=== PATIENT | male | born 1975 | race Asian ===

== ENCOUNTER 2016-12-22 02:13 | Inpatient (IN) | payer OTHER ==
[~2016-12-22] VITALS: Ht 182.9 cm; Wt 101.0 kg
[2016-12-22] VITALS (1031 sets, daily range): BP systolic 90–103; BP diastolic 55–77; PULSE 90–130; TEMP 98.1–99.3; O2SAT 85–100
[2016-12-22 03:16] LABS: BASO # 0.1 (0.0-0.2); BASO % 0.4 % (0.0-2.0); EOS # 0.2 (0.0-0.7); EOS % 1.3 % (0-4.0); GRAN # 6.9 (1.4-6.5); GRAN % 59.4 % (42.2-75.2); HEMATOCRIT 40.1 % (42.0-52.0); HEMOGLOBIN 13.3 g/dl (13.5-18.0); LYMPH # 3.6 (1.2-3.4); LYMPH % 31.4 % (20.0-51.0); MEAN CELL VOLUME 85 fl (80.0-100.0); MEAN CORPUSCULAR HEMOGLOBIN 28 pg (27.0-31.0); MEAN CORPUSCULAR HGB CONC 33 g/dl (33.0-37.0); MEAN PLATELET VOLUME 10.2 fl (7.4-10.4); MONO # 0.8 (0.1-0.6); MONO % 7.2 % (1.7-9.3); PLATELET COUNT 267 K/mm3 (130-400); RED BLOOD COUNT 4.73 M/mm3 (4.20-5.60); REDCELL DISTRIBUTION WIDTH-CV 13.6 % (11.5-14.5); WHITE BLOOD COUNT 11.6 K/mm3 (4.8-10.8)
[2016-12-22 03:26] LABS: ADJUSTED CALCIUM 8.7 mg/dL (8.4-10.2); ALANINE AMINOTRANSFERASE 25 U/L (21-72); ALBUMIN 4.4 gm/dL (3.5-5.0); ALKALINE PHOSPHATASE 65 U/L (50-136); ANION GAP 14 mmol/L (7-16); BILIRUBIN,TOTAL 0.6 mg/dL (0.0-1.0); BLOOD UREA NITROGEN 20 mg/dL (9-20); CARBON DIOXIDE 24 mmol/L (22-30); CHLORIDE 101 mmol/L (98-107); CREATININE, serum 0.87 mg/dL (0.66-1.25); GLUCOSE 112 mg/dL (74-106); POTASSIUM 3.8 mmol/L (3.4-5.0); SODIUM 139 mmol/L (137-145); TOTAL PROTEIN 7.6 gm/dL (6.4-8.2)
[2016-12-22 03:39] LABS: TROPONIN-I < 0.012 ng/mL (0.000-0.034)
[2016-12-22] MEDS ORDERED: CLARITIN 1010 MG/TAB PO (07:59)
[2016-12-22] MEDS ORDERED: ASPIRIN 81M81 MG/TA2 PO (09:11)
[2016-12-23] VITALS (729 sets, daily range): BP systolic 95–110; BP diastolic 59–75; PULSE 75–91; TEMP 97–98.7; O2SAT 86–100
[2016-12-23 05:46] LABS: BASO % 0.3 % (0.0-2.0); EOS # 0.1 (0.0-0.7); EOS % 1.7 % (0-4.0); GRAN # 3.5 (1.4-6.5); GRAN % 49.4 % (42.2-75.2); HEMOGLOBIN 13.6 g/dl (13.5-18.0); LYMPH # 2.9 (1.2-3.4); LYMPH % 40.5 % (20.0-51.0); MEAN CELL VOLUME 85 fl (80.0-100.0); MEAN CORPUSCULAR HEMOGLOBIN 28 pg (27.0-31.0); MEAN CORPUSCULAR HGB CONC 33 g/dl (33.0-37.0); MEAN PLATELET VOLUME 10.3 fl (7.4-10.4); MONO # 0.6 (0.1-0.6); MONO % 7.8 % (1.7-9.3); PLATELET COUNT 277 K/mm3 (130-400); RED BLOOD COUNT 4.82 M/mm3 (4.20-5.60); REDCELL DISTRIBUTION WIDTH-CV 13.8 % (11.5-14.5); WHITE BLOOD COUNT 7.1 K/mm3 (4.8-10.8)
[2016-12-23 06:08] LABS: CALCIUM 8.9 mg/dL (8.4-10.2); CREATININE, serum 0.78 mg/dL (0.66-1.25); POTASSIUM 4.1 mmol/L (3.4-5.0)
[2016-12-23] MEDS ORDERED: XARELTO20 MG PO (16:49)
[2016-12-23] MEDS ORDERED: TAMBOCOR 1100 MG/TAB PO (16:50)
[2016-12-23] MEDS ORDERED: CARDIZEM CD 12120 MG PO (16:50)
[2016-12-23] MEDS ORDERED: LIPITOR20 MG PO (16:51)
== END 2016-12-23 18:30 | disposition home or self-care (01) | DRG 69 ==
LOC: COL.ER 02:13 → ICU 04:53
PROVIDERS: Family Medicine; Physician Assistant
DX: G45.9 Transient cerebral ischemic attack, unspecified (principal); I48.91 Unspecified atrial fibrillation; E78.5 Hyperlipidemia, unspecified; R20.0 Anesthesia of skin; Z87.891 Personal history of nicotine dependence; Z82.49 Family history of ischemic heart disease and other diseases of the circulatory system
CPT/HCPCS: 99223-AI; 99232-AI; 99239; J0282; J1650; J2060; J2405; J7030; J7050; J7060

== ENCOUNTER 2016-12-27 15:35 | Observation (INO) | payer OTHER ==
[~2016-12-27] VITALS: Ht 188 cm; Wt 76.3 kg
[~2016-12-27 15:35] MED LIST: ASPIRIN 81M81 MG/TA2 PO; CARDIZEM CD 12120 MG PO; CLARITIN 1010 MG/TAB PO; LIPITOR20 MG PO; TAMBOCOR 1100 MG/TAB PO; XARELTO20 MG PO
[2016-12-27 16:07] LABS: BASO % 0.4 % (0.0-2.0); EOS # 0.1 (0.0-0.7); EOS % 0.9 % (0-4.0); GRAN # 5.2 (1.4-6.5); GRAN % 52.8 % (42.2-75.2); HEMATOCRIT 40.6 % (42.0-52.0); HEMOGLOBIN 13.4 g/dl (13.5-18.0); LYMPH # 3.9 (1.2-3.4); LYMPH % 39.4 % (20.0-51.0); MEAN CELL VOLUME 85 fl (80.0-100.0); MEAN CORPUSCULAR HEMOGLOBIN 28 pg (27.0-31.0); MEAN CORPUSCULAR HGB CONC 33 g/dl (33.0-37.0); MEAN PLATELET VOLUME 10.1 fl (7.4-10.4); MONO # 0.6 (0.1-0.6); MONO % 6.1 % (1.7-9.3); PLATELET COUNT 299 K/mm3 (130-400); RED BLOOD COUNT 4.78 M/mm3 (4.20-5.60); REDCELL DISTRIBUTION WIDTH-CV 13.4 % (11.5-14.5); WHITE BLOOD COUNT 9.8 K/mm3 (4.8-10.8)
[2016-12-27] MEDS ORDERED: NATURAL MAGNES200 MG PO (16:27)
[2016-12-27 16:29] LABS: INR 1.2 (0.8-3.0); PROTHROMBIN TIME 13.9 SECONDS (9.7-12.8)
[2016-12-27 16:32] LABS: PARTIAL THROMBOPLASTIN TIME 43.5 SECONDS (26.0-37.0)
[2016-12-27 16:37] LABS: ALANINE AMINOTRANSFERASE 23 U/L (21-72); ALBUMIN 4.4 gm/dL (3.5-5.0); ALKALINE PHOSPHATASE 69 U/L (50-136); ANION GAP 14 mmol/L (7-16); BILIRUBIN,TOTAL 0.7 mg/dL (0.0-1.0); BLOOD UREA NITROGEN 13 mg/dL (9-20); CALCIUM 9.3 mg/dL (8.4-10.2); CARBON DIOXIDE 22 mmol/L (22-30); CHLORIDE 101 mmol/L (98-107); CREATININE, serum 0.83 mg/dL (0.66-1.25); GLUCOSE 100 mg/dL (74-106); LIPASE 74 U/L (23-300); SODIUM 136 mmol/L (137-145); TOTAL PROTEIN 7.8 gm/dL (6.4-8.2)
[2016-12-27 16:51] LABS: TROPONIN-I < 0.012 ng/mL (0.000-0.034)
[2016-12-27 18:28] VITALS: BP 114/68; PULSE 64; TEMP 98
[2016-12-27 18:29] VITALS: BP 114/68; PULSE 64; TEMP 98
[2016-12-27 19:24] LABS: MAGNESIUM 2.2 mg/dL (1.6-2.3)
[2016-12-27 19:50] LABS: B-TYPE NATRIURETIC PEPTIDE 26 pg/mL (0-125)
[2016-12-27 23:15] VITALS: BP 106/67; PULSE 60; TEMP 97.1
[2016-12-28 03:32] VITALS: BP 115/59; PULSE 65; TEMP 98.4
[2016-12-28 07:52] LABS: ANION GAP 12 mmol/L (7-16); BLOOD UREA NITROGEN 12 mg/dL (9-20); CARBON DIOXIDE 24 mmol/L (22-30); CHLORIDE 102 mmol/L (98-107); CHOLESTEROL 191 mg/dL (120-200); CREATININE, serum 0.84 mg/dL (0.66-1.25); GLUCOSE 88 mg/dL (74-106); HDL CHOLESTEROL 29 mg/dL; LDL CHOLESTEROL 128 mg/dL; POTASSIUM 4.3 mmol/L (3.4-5.0); SODIUM 139 mmol/L (137-145); TRIGLYCERIDE 168 mg/dL
[2016-12-28 08:04] LABS: TROPONIN-I < 0.012 ng/mL (0.000-0.034)
[2016-12-28 08:35] VITALS: BP 113/73; PULSE 68; TEMP 97.3
[2016-12-28 11:52] VITALS: BP 112/67; PULSE 74; TEMP 98.4
[2016-12-28] MEDS ORDERED: PLAVIX 75MG TAB75 MG PO (12:45)
== END 2016-12-28 13:00 | disposition home or self-care (01) ==
LOC: COL.ER 15:35 → MEDICAL 17:10
PROVIDERS: Emergency Medicine; Nurse Practitioner Family
DX: R07.9 Chest pain, unspecified (principal); I48.0 Paroxysmal atrial fibrillation; E78.5 Hyperlipidemia, unspecified; G43.809 Other migraine, not intractable, without status migrainosus; J44.9 Chronic obstructive pulmonary disease, unspecified; D64.9 Anemia, unspecified; Z86.73 Personal history of transient ischemic attack (TIA), and cerebral infarction without residual deficits; Z82.49 Family history of ischemic heart disease and other diseases of the circulatory system; Z87.891 Personal history of nicotine dependence; Z79.01 Long term (current) use of anticoagulants
CPT/HCPCS: G0378; J2270; J2405; J7030

== ENCOUNTER → 2016-12-30 | Outpatient (CLI) | payer OTHER ==
[~2016-12-30] MED LIST changes: +NATURAL MAGNES200 MG PO; +PLAVIX 75MG TAB75 MG PO
== END ==
LOC: COL.RAD 08:15
DX: G47.33 Obstructive sleep apnea (adult) (pediatric) (principal); G47.10 Hypersomnia, unspecified
CPT/HCPCS: A9585

== ENCOUNTER 2017-01-02 12:32 | Day surgery (SDC) | payer OTHER ==
[2017-01-02] VITALS (10 sets, daily range): BP systolic 91–125; BP diastolic 62–89; PULSE 68–83; TEMP 98
[~2017-01-02] VITALS: Ht 188.1 cm; Wt 100.0 kg
[2017-01-02 13:10] LABS: HEMATOCRIT 40.7 % (42.0-52.0); HEMOGLOBIN 13.6 g/dl (13.5-18.0); MEAN CELL VOLUME 85 fl (80.0-100.0); MEAN CORPUSCULAR HEMOGLOBIN 29 pg (27.0-31.0); MEAN CORPUSCULAR HGB CONC 33 g/dl (33.0-37.0); MEAN PLATELET VOLUME 10.2 fl (7.4-10.4); PLATELET COUNT 318 K/mm3 (130-400); RED BLOOD COUNT 4.77 M/mm3 (4.20-5.60); REDCELL DISTRIBUTION WIDTH-CV 13.5 % (11.5-14.5); WHITE BLOOD COUNT 7.9 K/mm3 (4.8-10.8)
[2017-01-02 13:16] LABS: INR 1.2 (0.8-3.0); PROTHROMBIN TIME 13.6 SECONDS (9.7-12.8)
[2017-01-02] MEDS ORDERED: LIPITOR20 MG PO (13:16)
[2017-01-02] MEDS ORDERED: TAMBOCOR 1100 MG/TAB PO (13:17)
[2017-01-02] MEDS ORDERED: XARELTO20 MG PO (13:18)
[2017-01-02] MEDS ORDERED: CARDIZEM CD 12120 MG PO (13:19)
[2017-01-02 13:20] LABS: CALCIUM 9.5 mg/dL (8.4-10.2); CREATININE, serum 0.83 mg/dL (0.66-1.25); POTASSIUM 4.3 mmol/L (3.4-5.0)
== END 2017-01-02 19:30 | disposition home or self-care (01) ==
LOC: COL.CAR 12:32
PROVIDERS: Internal Medicine Interventional Cardiology
DX: I20.9 Angina pectoris, unspecified (principal); I48.91 Unspecified atrial fibrillation; Z79.01 Long term (current) use of anticoagulants; Z86.73 Personal history of transient ischemic attack (TIA), and cerebral infarction without residual deficits
CPT/HCPCS: J2250; J3010; Q9967

== ENCOUNTER → 2017-02-11 | Outpatient (CLI) | payer OTHER | LOC: COL.RAD 14:10 | DX: G43.109 Migraine with aura, not intractable, without status migrainosus (principal); M47.812 Spondylosis without myelopathy or radiculopathy, cervical region; G45.1 Carotid artery syndrome (hemispheric); I48.0 Paroxysmal atrial fibrillation | CPT/HCPCS: Q9967 ==

== ENCOUNTER 2017-07-11 15:18 | Outpatient (RCR) | payer OTHER | END 2017-08-19 10:13 | disposition home or self-care (01) | LOC: WSPT 15:18 | DX: M48.02 Spinal stenosis, cervical region (principal); R51 Headache ==